=== PATIENT | female | born 1960 | race Two or more races ===

== ENCOUNTER 2020-12-05 20:31 | Emergency (ER) | payer SELFPAY ==
[~2020-12-05] VITALS: Ht 162.6 cm; Wt 73.7 kg
--- NOTE | 2020-12-05 20:43 | NUR ---
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
[2020-12-05] MEDS ORDERED: HYDROmorphone 2 MG/ML, 1ML ONE (21:12)
[2020-12-05] MEDS ORDERED: HYDROmorphone 1 MG/ML, 1ML INJ IV ONE (21:30)
--- NOTE | 2020-12-05 21:33 | NUR ---
PT. TO ED WITH C/O CONSTIPATION. PER PT. NO BM X 10 DAYS SINCE HAVING SURGERY. PT. C/O ABD/RECTAL PAIN 02/09. PT. WAS VERY TEARFUL. IV ESTABLISHED. LABS DRAWN. PT. MEDICATED PER JUL. PT. REPORTS RELIEF FROM PAIN AT THIS TIME. AWAITING RECTAL EXAM BY ERP. FAMILY AT FOR SUPPORT.
[2020-12-05 21:51] LABS: BASOPHILS % (AUTO) 1 % (0-1); EOSINOPHILS % (AUTO) 1 % (1-7); LYMPHOCYTES % (AUTO) 22 % (22-44); MEAN CORPUSCULAR HEMOGLOBIN 29.6 pg (27.0-34.8); MEAN CORPUSCULAR HGB CONC 33.6 g/dL (32.4-35.8); MEAN PLATELET VOLUME 8.2 fL (7.4-10.4); MONOCYTES % (AUTO) 7 % (2-9); NEUTROPHILS % (AUTO) 70 % (42-75); PLATELET COUNT 271 x10^3/uL (130-400); RED CELL DISTRIBUTION WIDTH 13.7 % (9.6-15.2)
[2020-12-05 22:03] LABS: ALANINE AMINOTRANSFERASE 52 U/L (12-78); ALBUMIN 3.7 g/dL (3.4-5.0); ANION GAP 9 mmol/L (5-15); CALCIUM 8.8 mg/dL (8.5-10.1); CHLORIDE 108 mmol/L (98-107); CREATININE 0.54 mg/dL (0.55-1.02)
[2020-12-05 22:06] LABS: ALKALINE PHOSPHATASE 70 U/L (45-117); BILIRUBIN,TOTAL 0.4 mg/dL (0.2-1.0); TOTAL PROTEIN 8.2 g/dL (6.4-8.2)
--- NOTE | 2020-12-05 22:24 | NUR ---
ENEMA ADMIN PER ORDER. PT. TOLERATED WELL. PT. UP TO BSC AT THIS TIME.
[2020-12-05 23:17] VITALS: BP 110/71
== END 2020-12-05 23:19 | disposition home or self-care (01) ==
LOC: ED 21:29
DX: K59.00 Constipation, unspecified (principal); R10.32 Left lower quadrant pain; R10.84 Generalized abdominal pain; K62.89 Other specified diseases of anus and rectum
CPT/HCPCS: 36415; 80053; 85025; 96374; 99284; J1170